=== PATIENT | male | born 1990 | race Caucasian/White ===

== ENCOUNTER 2023-01-10 10:41 | Day surgery (SDC) | payer OTHER ==
[~2023-01-10] VITALS: Ht 198.1 cm; Wt 157.9 kg
[2023-01-10] VITALS (8 sets, daily range): BP systolic 124–157; BP diastolic 59–96
[~2023-01-10 10:41] MED LIST: HYDHCL25 PO; HYDR1TAB94; IBUP800 PO; KETO10 PO; PERM5TC TOP; TIZANIDINE HCL2 MG; Zofran Odt4 MG SL
--- NOTE | 2023-01-10 12:00 | NUR ---
Ambulatory in Day Surgery with crutches. Right knee swollen and pt reports 12/10 pain with ambulation. History, Chart, Medications and Allergies reviewed before start of procedure.Patient confirms NPO status and agrees with scheduled surgery. Lungs clear T/O to Auscultation. Patient States Post-Procedure ride home has been arranged.
--- NOTE | 2023-01-10 15:20 | NUR ---
REPORT RECIEVED. PT SITTIG UP IN BED. RATES PAIN /10. ORDERS FOR PAIN MEDS REVIEWED. TOLERATING CHEESE AND CRACKERS AND WATER
--- NOTE | 2023-01-10 16:29 | NUR ---
PT GIVEN A SECOND DOSE OF PAIN MEDICATION PER ORDER BECAUSE OF NO RELIEF OF PAIN. REASSESED 20 MINUTES LATER AND STATED KNEE WAS FEELING BETTER. TOLERATING CHEESE AND CRACKERS WITH APPLE JUICE. INSTRUCTIONS PROVIDED FOR DISCHARGE AND FOR POLAR CARE THERAPY. AT BEDSIDE Discharge instructions reviewed with patient. Patient verbalizes understanding. Copy given to patient to take home. SCRIPT PROVIDED. Dressing to procedure site clean, dry, intact with no visible drainage, swelling, erythema or bruising noted. PT C/O OF PAIN AT TOURNIQUET SITE. SLIGHT BRUSING NOTED. EXPLINATION GIVEN FOR TOURNIQUET PAIN.
--- NOTE | 2023-01-10 16:34 | NUR ---
Discharged via wheelchair to private car for ride home with crutches, polar care machine w cord and all belongings. pt reports relief of pain and denies n/v
== END 2023-01-10 16:35 | disposition home or self-care (01) ==
LOC: ORSCMMR 10:41 → ORD 12:30 → ORSCMMR 12:30
PROVIDERS: Orthopaedic Surgery
PROC: 0SQC4ZZ Repair Right Knee Joint, Percutaneous Endoscopic Approach (ICD-10-PCS; principal; 2023-01-10 12:30)
DX: S83.251A Bucket-handle tear of lateral meniscus, current injury, right knee, initial encounter (principal); Z87.891 Personal history of nicotine dependence; E66.01 Morbid (severe) obesity due to excess calories; Z68.41 Body mass index [BMI] 40.0-44.9, adult
CPT/HCPCS: A9270; C1713; J0171; J0690; J1100; J1885; J2250; J2405; J2704; J3010; J7120